=== PATIENT | female | born 1975 | race Caucasian/White ===

== ENCOUNTER → 2016-11-09 | Outpatient (CLI) | payer MEDICARE, OTHER ==
[2016-11-09 12:02] LABS: Non-African American GFR(MDRD) >60 (>60 ml/min/1.73 sqM)
--- NOTE | 2016-11-17 16:35 | BMR ---
EXAMINATION TYPE: MR breast BILAT wo/w con DATE OF EXAM: 11/09/2016 CLINICAL HISTORY: Personal history of lobular hyperplasia. No other history or indication was provide d. COMPARISONS: Mammogram and ultrasound dated 03/18/16. PULSE SEQUENCES: Multiplanar, multisequence MR images of the breast were obtained on a MRI imaging scanner. Coronal STIR in the body coil, followed by pre-contrast axial T2 fat-saturated, non- fat saturated T1 and one pre- and five post-contrast fat-saturated images were obtained of both breasts together with the breast coil. Post-processed subtraction and MIP reconstructions were then generated . Dynamic images were spatially registered using the [employer]anol[employer] software package, and dynamic curves and parametric images were evaluated. Information regarding type and amount of contrast is not available. Field of View information is also not available. FINDINGS: There is heterogeneous central glandularity bilaterally and mild background enhancement. Coronal STIR sequence demonstrates normal axillary lymph nodes. Axial T2 sequence demonstrates no cysts or fluid collections. Non fat saturated T1 sequence demonstrates no fat containing lesions. Delayed post contrast sequence demonstrates no internal mammary lymphadenopathy. Regarding the left breast: At the 4 o'clock position, 12 cm from the nipple, there is an oval mass wi th circumscribed margins, which measures 0.7 x 0.7 x 0.5 cm compatible with an intramammmary lymph node. Finding is best seen on image 60 of the dynamic sequence. No other masses or suspicious areas o f enhancement. Regarding the right breast: There are no masses, architectural distortion or suspicious areas of enhancement. IMPRESSION: No evidence of malignancy in either breast. Left intramammary lymph node, benign. No lymphadenopathy Recommendations: Next bilateral mammogram due February 2017. BI-RADS category 1 right breast. BI-RADS category 2 left breast. I have reviewed the above images and report from [facility] and agree with the findings. Patient receiv ed 10 cc MultiHance IV. 38.8 x 38.8 cm field of view. Images were reviewed on separate workstation wi [employer] software. Small benign-appearing internal mammary node is present on axial image 80 of postcontrast images.
== END | disposition home or self-care (01) ==
LOC: RADMRIMAIN 11:36
PROVIDERS: ATTEND Internal Medicine Hematology & Oncology
DX: D05.90 Unspecified type of carcinoma in situ of unspecified breast (principal)
CPT/HCPCS: 82565; 0159T; C8908; A9577; 77059

== ENCOUNTER → 2017-07-07 | Outpatient (CLI) | payer MEDICARE, OTHER ==
--- NOTE | 2017-07-08 09:12 | MM ---
Reason for exam: additional evaluation requested from prior study. Last mammogram was performed 1 year and 4 months ago. History: Patient has history of breast cancer at age 38. Family history of breast cancer in mother at age 65. Malignant u/S right breast localization of the right breast, September 12, 2013. Malignant US RT VAD breast biopsy of the right breast, August 24, 2013. Took hormonal contraceptives for 6 years beginning at age 17. Taking tamoxifen beginning at age 38. Physical Findings: Nurse did not find any significant physical abnormalities on exam. MG 3D Diag Mammo W/Cad [facility] Bilateral CC and MLO view(s) were taken. Prior study comparison: November 09, 2016, bilateral MR breast bilat wo/w con. March 18, 2016, bilateral MG 3d diag mammo w/cad [facility]. March 18, 2016, right breast US breast RT. August 11, 2015, right breast MG 3d diag mammo w/cad RT. The breast tissue is heterogeneously dense. This may lower the sensitivity of mammography. Post surgical distortion upper outer quadrant in the right breast is stable. No significant new findings when compared with previous films. These results were verbally communicated with the patient and result sheet given to the patient on 07/07/17. ASSESSMENT: Benign, BI-RAD 2 RECOMMENDATION: Follow-up diagnostic mammogram of both breasts in 1 year.
== END | disposition home or self-care (01) ==
LOC: RADMAMWWP 10:13
PROVIDERS: ATTEND Internal Medicine Hematology & Oncology
DX: Z08 Encounter for follow-up examination after completed treatment for malignant neoplasm (principal); Z85.3 Personal history of malignant neoplasm of breast
CPT/HCPCS: 77066; G0279

== ENCOUNTER → 2017-11-30 | Outpatient (CLI) | payer MEDICARE, OTHER ==
--- NOTE | 2017-12-01 11:49 | BMR ---
EXAMINATION TYPE: MR breast BILAT wo/w con DATE OF EXAM: 11/30/2017 COMPARISON: 11/09/2016 HISTORY: Carcinoma in situ of breast. Excision of atypical lobular hyperplasia and lobular carcinoma in situ on the right. TECHNIQUE: A series of fat and water weighted images in the long and short axis views of both breasts are obtained in conjunction with dynamic contrast MRI with subtraction technique. The patient was i njected with 7.5 mL intravenous Gadavist gadolinium contrast. Three-dimensional and additional post processing imaging is created on independent workstation and reviewed during official interpretation of this study. FINDINGS: The breasts are composed of heterogenous fibroglandular tissue and demonstrate mild symmetric backgro und parenchymal enhancement. Again at the 4:00 position within the left breast there is a T2 hyperintense intramammary lymph node with a fatty notch, unchanged from the prior. Postbiopsy changes seen of the upper-outer quadrant of the right breast. Subcentimeter nonenhancing cysts are noted at the 12:00 to 12:30 position within th e right breast. No evidence of suspicious mass or nonmass enhancement is seen within either breast. No evidence of lujan spicious intramammary, internal mammary or axillary adenopathy within either breast. IMPRESSION: BI-RADS 2-Benign findings. No MRI evidence of malignancy. Continued annual diagnostic mammography and consideration for continued annual MR screening in this high-risk patient are recommended.
== END ==
LOC: RADMRIMAIN 11:39
PROVIDERS: ATTEND Internal Medicine Hematology & Oncology
DX: D05.01 Lobular carcinoma in situ of right breast (principal)
CPT/HCPCS: 82565; 0159T; C8908; 77059

== ENCOUNTER → 2018-08-04 | Outpatient (CLI) | payer MEDICARE, OTHER ==
--- NOTE | 2018-08-07 07:51 | MM ---
Reason for exam: additional evaluation requested from prior study. Last mammogram was performed 1 year and 1 month ago. History: Patient has history of breast cancer at age 38. Family history of breast cancer in mother at age 65. Malignant u/S right breast localization of the right breast, September 12, 2013. Malignant US RT VAD breast biopsy of the right breast, August 24, 2013. Lumpectomy of the right breast. Took hormonal contraceptives for 6 years beginning at age 17. Took tamoxifen beginning at age 38. Physical Findings: Nurse did not find any significant physical abnormalities on exam. MG 3D Diag Mammo W/Cad FELTON Bilateral CC and MLO view(s) were taken. Prior study comparison: July 07, 2017, bilateral MG 3d diag mammo w/cad [facility]. March 18, 2016, bilateral MG 3d diag mammo w/cad [facility]. The breast tissue is heterogeneously dense. This may lower the sensitivity of mammography. No significant new findings when compared with previous films. These results were verbally communicated with the patient and result sheet given to the patient on 08/04/18. ASSESSMENT: Benign, BI-RAD 2 RECOMMENDATION: Routine screening mammogram of both breasts in 1 year.
== END | disposition home or self-care (01) ==
LOC: RADMAMWWP 15:27
PROVIDERS: ATTEND Internal Medicine Hematology & Oncology
DX: Z08 Encounter for follow-up examination after completed treatment for malignant neoplasm (principal); Z85.3 Personal history of malignant neoplasm of breast
CPT/HCPCS: 77066; G0279; 77062

== ENCOUNTER → 2019-03-13 | Outpatient (CLI) | payer MEDICARE, OTHER ==
--- NOTE | 2019-03-15 16:06 | BMR ---
EXAMINATION TYPE: MR breast BILAT wo/w con DATE OF EXAM: 03/13/2019 COMPARISON: Mammogram the breast dated 11/30/2017 and 11/09/2016. Diagnostic bilateral mammogram dated 08/04/2018, 07/07/2017 and 03/18/2016. Right breast ultrasound dated 03/18/2016 and 08/11/2015. HISTORY: F/u post breast ca in 2012 TECHNIQUE: A series of fat and water weighted images in the long and short axis views of both breasts are obtained in conjunction with dynamic contrast MRI with subtraction technique. The patient was i njected with 7.5 mL intravenous Gadavist gadolinium contrast. Three-dimensional and additional post processing imaging is created on independent workstation and reviewed during official interpretation of this study. FINDINGS: The breasts are composed of heterogenous fibroglandular tissue and display mild symmetric background parenchymal enhancement. There is a T2 hyperintense intramammary lymph node containing macroscopic fat in the lower outer quad rant of the left breast at posterior depth. Punctate areas of T2 hypointensity within the right breas t are suspected to represent hemosiderin from prior surgical intervention in this patient with prior excision of atypical lobular hyperplasia and lobular carcinoma in situ on the right. No new suspicious mass nor nonmass enhancement is seen within either breast. No suspicious internal m ammary, intramammary, nor axillary adenopathy is seen. There is a stable nonenlarged 2 mm short axis internal mammary lymph node seen on the right on series 701 image 302. Susceptibility artifact near the gallbladder fossa may represent cholecystectomy change. IMPRESSION: BI-RADS 2-benign findings. No MR evidence of malignancy. Continued annual mammography and considerati on for continued annual screening MRI are recommended in this high-risk patient.
== END | disposition home or self-care (01) ==
LOC: RADMRIMAIN 11:08
PROVIDERS: ATTEND Internal Medicine Hematology & Oncology
DX: Z85.3 Personal history of malignant neoplasm of breast (principal)
CPT/HCPCS: C8937; C8908; A9585; 77049

== ENCOUNTER → 2019-08-06 | Outpatient (CLI) | payer MEDICARE ==
--- NOTE | 2019-08-06 14:21 | MM ---
Reason for exam: additional evaluation requested from prior study. Last mammogram was performed 1 year ago. History: Patient has history of breast cancer at age 38. Family history of breast cancer in mother at age 65. Malignant u/S right breast localization of the right breast, September 12, 2013. Malignant US RT VAD breast biopsy of the right breast, August 24, 2013. Lumpectomy of the right breast. Took hormonal contraceptives for 6 years beginning at age 17. Took tamoxifen beginning at age 38. Physical Findings: Nurse did not find any significant physical abnormalities on exam. MG 3D Diag Mammo W/Cad FELTON Bilateral CC and MLO view(s) were taken. LM and spot compression CC view(s) were taken of the left breast. Prior study comparison: August 04, 2018, bilateral MG 3d diag mammo w/cad [facility]. July 07, 2017, bilateral MG 3d diag mammo w/cad [facility]. The breast tissue is heterogeneously dense. This may lower the sensitivity of mammography. Central left CC view asymmetric density, just medial to the retroareolar plane becomes less defined on spot 3D with an appearance unchanged from prior studies. No significant new findings when compared with previous films. These results were verbally communicated with the patient and result sheet given to the patient on 08/06/19. ASSESSMENT: Benign, BI-RAD 2 RECOMMENDATION: Routine screening mammogram of both breasts in 1 year.
== END | disposition home or self-care (01) ==
LOC: RADMAMWWP 12:38
PROVIDERS: ATTEND Internal Medicine Hematology & Oncology
DX: Z08 Encounter for follow-up examination after completed treatment for malignant neoplasm (principal); Z85.3 Personal history of malignant neoplasm of breast
CPT/HCPCS: 77066; G0279; 77062

== ENCOUNTER → 2020-03-29 | Outpatient (CLI) | payer MEDICARE ==
--- NOTE | 2020-04-02 12:03 | BMR ---
EXAMINATION TYPE: MR breast BILAT wo/w con DATE OF EXAM: 03/29/2020 9:56 AM COMPARISON: 03/13/2019 HISTORY: Lobular CA in situ breast CONTRAST: The patient was injected with 8 mL intravenous Gadavist gadolinium contrast. TECHNIQUE: Precontrast T1 and T2 coronal, axial and high-resolution STIR sagittal images were acquire d. Postcontrast dynamic images were acquired.This study was processed using a [employer] computer-aid ed detection system to optimize radiologist interpretation by generating multiplanar and three-dimens ional reconstructions, creating subtraction images from the dynamic contrast data and computing tumor volumes and dimensions. FINDINGS: Right breast: There is heterogenous fibroglandular tissue seen with mild adenosis present. Postopera tive changes of the right breast with areas of hemosiderin deposition. Small cyst right breast is unc hanged. There is no evidence for an enhancing mass or pathologic enhancement. No skin thickening or nipple retraction is seen. No axillary, intramammary or internal mammary adenopathy present. Left breast: There is heterogenous fibroglandular tissue seen with mild adenosis present. There is n o evidence for an enhancing mass or pathologic enhancement. No skin thickening or nipple retraction is seen. No axillary adenopathy present. IMPRESSION: BI-RADS 2 benign findings.No MR evidence of malignancy. Continued annual mammography and consideratio n for continued annual screening MRI are recommended in this high-risk patient. RECOMMENDATION: MR is approximately 98% specific in excluding invasive or infiltrative malignant neop lasm when hypovascularity or absence of enhancement is determined. Rare hypovascular neoplasms includ e mucinous carcinomas and tubular carcinomas. MR may not detect low-grade of DCIS and unusual instan emma of hypovascular lobular carcinomas have been reported. Mr breast findings should not be used to mitigate against biopsy in cases where there is substantive mammographic evidence of malignancy. Mri is not a suitable substitute for yearly screening mammogram unless the patient has extremely dense b reasts and the mammography study is limited or un-interpretable at which point the decision to substi tute MR is at the discretion of the patient and the patients clinician.
== END | disposition home or self-care (01) ==
LOC: RADMRIMAIN 08:47
PROVIDERS: ATTEND Internal Medicine Hematology & Oncology
DX: D05.90 Unspecified type of carcinoma in situ of unspecified breast (principal)
CPT/HCPCS: C8937; C8908; A9585; 77049

== ENCOUNTER → 2020-08-07 | Outpatient (CLI) | payer MEDICARE ==
--- NOTE | 2020-08-08 14:09 | MM ---
Reason for exam: screening (asymptomatic). Last mammogram was performed 1 year ago. History: Patient is postmenopausal and has history of breast cancer at age 38. Family history of breast cancer in mother at age 65. Malignant u/S right breast localization of the right breast, September 12, 2013. Malignant US RT VAD breast biopsy of the right breast, August 24, 2013. Lumpectomy of the right breast. Took hormonal contraceptives for 6 years beginning at age 17. Took antineoplastic beginning at age 38. Physical Findings: A clinical breast exam by your physician is recommended on an annual basis and results should be correlated with mammographic findings. MG 3D Screening Mammo W/Cad Bilateral CC and MLO view(s) were taken. Prior study comparison: August 06, 2019, bilateral MG 3d diag mammo w/cad [facility]. August 04, 2018, bilateral MG 3d diag mammo w/cad [facility]. The breast tissue is heterogeneously dense. This may lower the sensitivity of mammography. There is no discrete abnormality. No significant changes when compared with prior studies. ASSESSMENT: Negative, BI-RAD 1 RECOMMENDATION: Routine screening mammogram of both breasts in 1 year.
== END | disposition home or self-care (01) ==
LOC: RADMAMWWP 10:21
PROVIDERS: ATTEND Internal Medicine Hematology & Oncology
DX: Z12.31 Encounter for screening mammogram for malignant neoplasm of breast (principal)
CPT/HCPCS: 77063; 77067

== ENCOUNTER → 2022-07-07 | Outpatient (CLI) | payer MEDICARE ==
--- NOTE | 2022-07-08 13:23 | MM ---
Reason for Exam: Screening (asymptomatic). Last mammogram was performed 1 year(s) and 11 month(s) ago. Patient History: Menarche at age 13. First Full-Term at age 28. Left ovary removed at age 44. Right ovary removed at age 44. Hysterectomy at age 44. Postmenopausal. Breast cancer, right, age 38. Hormonal Contraceptives for 6 years from age 17 until age 23. Lumpectomy on the Right side. 09/12/2013, Malignant Excisional Biopsy on the right side. 08/24/2013, Malignant Core Biopsy on the right side. Mother had breast cancer, age 65. Prior Study Comparison: 08/04/2018 Bilateral Diagnostic Mammogram, [facility]. 08/06/2019 Bilateral Diagnostic Mammogram, [facility]. 08/07/2020 Bilateral Screening Mammogram, [facility]. Tissue Density: There are scattered fibroglandular densities. Findings: Analyzed By CAD. Pattern appears stable. Focal asymmetry is in the upper outer right mid breast. No suspicious groups of microcalcifications, spiculated or lobular masses, architectural distortion or other secondary signs of malignancy are mammographically apparent. Overall Assessment: Benign, BI-RAD 2 Management: Screening Mammogram of both breasts in 1 year. A negative mammogram report should not preclude additional follow up of suspicious palpable abnormalities. Patient should continue monthly self breast exam. A clinical breast exam by your physician is recommended on an annual basis and results should be correlated with mammographic findings. Electronically signed and approved by: Yaw Alonso D.O. Radiologis
== END | disposition home or self-care (01) ==
LOC: RADMAMWWP 13:10
PROVIDERS: ATTEND Internal Medicine Hematology & Oncology
DX: Z12.31 Encounter for screening mammogram for malignant neoplasm of breast (principal); Z78.0 Asymptomatic menopausal state; Z80.3 Family history of malignant neoplasm of breast; Z98.890 Other specified postprocedural states
CPT/HCPCS: 77063; 77067

== ENCOUNTER → 2023-11-25 | Outpatient (CLI) | payer MEDICARE ==
--- NOTE | 2023-11-25 18:52 | MM ---
Reason for Exam: Screening (asymptomatic). Last mammogram was performed 1 year(s) and 5 month(s) ago. Patient History: Menarche at age 13. First Full-Term at age 28. Left ovary removed at age 44. Right ovary removed at age 44. Hysterectomy at age 44. Postmenopausal. Breast cancer, right, age 38. Hormonal Contraceptives for 6 years from age 17 until age 23. Lumpectomy on the Right side. 09/12/2013, Malignant Excisional Biopsy on the right side. 08/24/2013, Malignant Core Biopsy on the right side. Mother had breast cancer, age 65. Prior Study Comparison: 08/06/2019 Bilateral Diagnostic Mammogram, [facility]. 08/07/2020 Bilateral Screening Mammogram, [facility]. 07/07/2022 Bilateral MG 3D screening mammo w/cad, [facility]. Tissue Density: There are scattered areas of fibroglandular density. Findings: Analyzed By CAD. Unchanged areas of asymmetric density. There is no suspicious group of microcalcifications or new suspicious mass in either breast. Overall Assessment: Benign, BI-RAD 2 Management: Screening Mammogram of both breasts in 1 year. . Patient should continue monthly self-breast exams. A clinical breast exam by your physician is recommended on an annual basis. This exam should not preclude additional follow-up of suspicious palpable abnormalities. Electronically signed and approved by: Sienna Gutierrez M.D. Radiologist
== END | disposition home or self-care (01) ==
LOC: RADMAMWWP 08:03
PROVIDERS: ATTEND Internal Medicine Hematology & Oncology
DX: Z12.31 Encounter for screening mammogram for malignant neoplasm of breast (principal); G35 Multiple sclerosis; D05.90 Unspecified type of carcinoma in situ of unspecified breast; Z71.3 Dietary counseling and surveillance; Z80.3 Family history of malignant neoplasm of breast; Z78.0 Asymptomatic menopausal state; Z85.3 Personal history of malignant neoplasm of breast
CPT/HCPCS: 77063; 77067